=== PATIENT | female | born 1960 | race Caucasian/White ===

== ENCOUNTER 2020-05-05 12:04 | Emergency (ER) | payer BC, MEDICAID ==
[~2020-05-05] VITALS: Ht 157.5 cm; Wt 47.9 kg
[2020-05-05 12:07] VITALS: BP 115/69
== END 2020-05-05 16:00 | disposition home or self-care (01) ==
LOC: ED 12:51
DX: G89.11 Acute pain due to trauma (principal); M25.531 Pain in right wrist
CPT/HCPCS: 29125; 99284

== ENCOUNTER → 2020-12-03 | Outpatient (CLI) | payer MEDICAID | END | disposition home or self-care (01) | LOC: CFH 09:12 | DX: Z12.31 Encounter for screening mammogram for malignant neoplasm of breast (principal) | CPT/HCPCS: 77063; 77067 ==